=== PATIENT | male | born 1955 | race Caucasian/White ===

== ENCOUNTER 2019-11-20 13:59 | Emergency (ER) | payer MEDICARE ==
[~2019-11-20] VITALS: Ht 188 cm; Wt 74.0 kg
[2019-11-20 14:49] LABS: BASOPHILS # (AUTO) 0.1 X10'3 (0-0.2); EOSINOPHILS # (AUTO) 0.1 X10'3 (0-0.9); MEAN PLATELET VOLUME 6.4 FL (7.4-10.4); NEUTROPHILS % (AUTO) 75.8 % (42-75)
[2019-11-20 14:50] LABS: BASOPHILS % (AUTO) 0.8 % (0-1); EOSINOPHILS % (AUTO) 1.1 % (0-6); HEMATOCRIT 39.6 % (42.0-52.0); HEMOGLOBIN 13.5 g/dl (14.0-17.9); LYMPHOCYTES # (AUTO) 1.4 X10'3 (1.1-4.8); LYMPHOCYTES % (AUTO) 12.5 % (21-51); MEAN CORPUSCULAR HEMOGLOBIN 29.6 PG (27.0-31.0); MEAN CORPUSCULAR VOLUME 87.2 FL (78-98); MONOCYTES # (AUTO) 1.1 X10'3 (0-0.9); MONOCYTES % (AUTO) 9.8 % (2-12); NEUTROPHILS # (AUTO) 8.3 X10'3 (1.8-7.7); PLATELET COUNT 673 X10'3 (140-440); RED BLOOD COUNT 4.55 X10'6 (4.70-6.10); WHITE BLOOD COUNT 10.9 X10'3 (4.5-11.0)
[2019-11-20 15:01] LABS: ALANINE AMINOTRANSFERASE 12 U/L (12-78); ALBUMIN 2.9 G/DL (3.4-5.0); ALBUMIN/GLOBULIN RATIO 0.6 (1.1-1.5); ALKALINE PHOSPHATASE 108 IU/L (46-116); ANION GAP 6 (8-16); ASPARTATE AMINO TRANSFERASE 15 U/L (10-37); BILIRUBIN,TOTAL 0.3 MG/DL (0.1-1.0); BLOOD UREA NITROGEN 7 MG/DL (7-18); BUN/CREATININE RATIO 5.5 (5.4-32.0); CALCIUM 8.7 MG/DL (8.5-10.1); CHLORIDE 103 MMOL/L (99-107); CREATININE 1.27 MG/DL (0.60-1.10); GLUCOSE 96 MG/DL (70-104); POTASSIUM 4.2 MMOL/L (3.5-5.1); SODIUM 139 MMOL/L (135-145); TOTAL CARBON DIOXIDE 30.1 MMOL/L (24-32); TOTAL PROTEIN 7.4 G/DL (6.4-8.2); eGFR 57 ML/MIN
[2019-11-20] MEDS ORDERED: buprenorphine/naloxone 8MG-2MG SUBlingual film SL STA (16:03)
[2019-11-20 16:24] LABS: CLARITY,URINE CLEAR (Clear); COLOR,URINE YELLOW (Yellow); GLUCOSE, URINE NEGATIVE (Neg); KETONES,URINE NEGATIVE (Neg); LEUKOCYTE ESTERASE ,URINE SMALL (Neg); NITRITES, URINE NEGATIVE (Neg); OCCULT BLOOD,URINE NEGATIVE (Neg); PROTEIN,URINE NEGATIVE (Neg); UROBILINOGEN,URINE 0.2 E.U/dL (0.2-1.0)
[2019-11-20 16:29] LABS: UA COLLECTION TYPE NON-SPECIFIED
[2019-11-20 16:34] LABS: BACTERIA,URINE NONE SEEN /HPF (Neg); MUCUS STRANDS NONE SEEN /LPF (Neg); RBC,URINE 0-2 /HPF (0-2); SQUAMOUS EPITHELIAL CELL,UR NONE SEEN /LPF (FEW); WBC,URINE 0-4 /HPF (0-4)
[2019-11-20] MEDS ORDERED: LORazepam 2 mg/ml vial IM ONE (16:45)
[2019-11-20 19:47] VITALS: BP 101/64
== END 2019-11-20 20:36 | disposition home or self-care (01) ==
LOC: ER 13:59
DX: R91.1 Solitary pulmonary nodule (principal); K56.7 Ileus, unspecified; R10.84 Generalized abdominal pain; R33.9 Retention of urine, unspecified; F17.200 Nicotine dependence, unspecified, uncomplicated; J44.9 Chronic obstructive pulmonary disease, unspecified; Z90.49 Acquired absence of other specified parts of digestive tract; Z98.890 Other specified postprocedural states; Z85.038 Personal history of other malignant neoplasm of large intestine
CPT/HCPCS: 36415; 51702; 71045; 71250; 74176; 80053; 81001; 84484; 85025; 87088; 93005; 96372; 99284; J2060

== ENCOUNTER 2019-11-21 12:14 | Emergency (ER) | payer MEDICARE ==
[~2019-11-21] VITALS: Ht 188 cm; Wt 74.0 kg
[2019-11-21 14:17] LABS: CLARITY,URINE CLOUDY (Clear); COLOR,URINE YELLOW (Yellow); GLUCOSE, URINE NEGATIVE (Neg); KETONES,URINE NEGATIVE (Neg); LEUKOCYTE ESTERASE ,URINE NEGATIVE (Neg); NITRITES, URINE NEGATIVE (Neg); OCCULT BLOOD,URINE LARGE (Neg); PROTEIN,URINE NEGATIVE (Neg); UA COLLECTION TYPE FOLEY CATH; UROBILINOGEN,URINE 0.2 E.U/dL (0.2-1.0)
[2019-11-21 14:23] LABS: BACTERIA,URINE NONE SEEN /HPF (Neg); MUCUS STRANDS NONE SEEN /LPF (Neg); RBC,URINE TNTC /HPF (0-2); SQUAMOUS EPITHELIAL CELL,UR NONE SEEN /LPF (FEW); WBC,URINE 0-4 /HPF (0-4)
[2019-11-21 14:25] VITALS: BP 130/83
== END 2019-11-21 14:28 | disposition home or self-care (01) ==
LOC: ER 12:14
DX: R33.9 Retention of urine, unspecified (principal); Z85.038 Personal history of other malignant neoplasm of large intestine; Z85.46 Personal history of malignant neoplasm of prostate; Z98.890 Other specified postprocedural states; Z90.49 Acquired absence of other specified parts of digestive tract
CPT/HCPCS: 51702; 81001; 99284

== ENCOUNTER 2019-11-27 12:07 | Emergency (ER) | payer MEDICARE ==
[~2019-11-27] VITALS: Ht 188 cm; Wt 80.0 kg
--- NOTE | 2019-11-27 13:15 | NUR ---
Flushed salvador catheter with 120 cc of fluid. No obstruction and drained freely. Installed stat lock.
[2019-11-27] MEDS ORDERED: HYDROcodone/acetaminophen 10/325mg tab PO ONE (13:35)
--- NOTE | 2019-11-27 14:45 | NUR ---
Pt not making any urine at this time
--- NOTE | 2019-11-27 14:57 | NUR ---
Bladder scanned pt: 100 mL in bladder
[2019-11-27 15:14] VITALS: BP 108/75
[2019-11-27 15:24] LABS: CLARITY,URINE CLEAR (Clear); COLOR,URINE YELLOW (Yellow); GLUCOSE, URINE NEGATIVE (Neg); KETONES,URINE 40 mg/dl (Neg); LEUKOCYTE ESTERASE ,URINE SMALL (Neg); NITRITES, URINE NEGATIVE (Neg); OCCULT BLOOD,URINE LARGE (Neg); PROTEIN,URINE NEGATIVE (Neg); UROBILINOGEN,URINE 0.2 E.U/dL (0.2-1.0)
[2019-11-27 15:36] LABS: UA COLLECTION TYPE FOLEY CATH
[2019-11-27 15:44] LABS: BACTERIA,URINE FEW /HPF (Neg); SQUAMOUS EPITHELIAL CELL,UR NONE SEEN /LPF (FEW); WBC,URINE 0-4 /HPF (0-4)
[2019-11-27 15:45] LABS: CAL OXALATE CRYSTALS 2+ /HPF (NEGATIVE); TRANSITIONAL EPI CELLS,URINE FEW /HPF
[2019-11-27] MEDS ORDERED: HYDR-3965 PO (15:58)
[2019-11-27] MEDS ORDERED: DOCU100C41 PO (15:58)
[2019-11-27] MEDS ORDERED: CEPH-572 PO (15:58)
== END 2019-11-27 16:11 | disposition home or self-care (01) ==
LOC: ER 12:07
DX: N39.0 Urinary tract infection, site not specified (principal); R10.31 Right lower quadrant pain; G89.29 Other chronic pain; Z85.038 Personal history of other malignant neoplasm of large intestine; Z98.890 Other specified postprocedural states; Z90.49 Acquired absence of other specified parts of digestive tract
CPT/HCPCS: 74018; 81001; 87088; 99284